=== PATIENT | male | born 1995 | race Hispanic/Latino ===

== ENCOUNTER 2017-10-15 20:13 | Emergency (ER) | payer SELFPAY ==
[~2017-10-15] VITALS: Ht 170.2 cm; Wt 99.8 kg
[2017-10-15] MEDS ORDERED: HYDROCODONE/APAP 10MG-325MG TAB PO ONE (21:45)
--- NOTE | 2017-10-15 23:14 | Diagnostic Imaging Report ---
EXAM: FOOT LEFT COMPLETE, ANKLE 3+ VIEWS LEFT, AP, lateral and oblique INDICATION: Fall, left distal foot pain and bottom of foot COMPARISON: None FINDINGS: BONES: Questionable nondisplaced fracture of the distal fourth metatarsal. JOINTS: No malalignment. SOFT TISSUES: Normal IMPRESSION: Questionable nondisplaced fracture of the distal fourth metatarsal. Please correlate with point tenderness. No evidence of a left ankle fracture. Signed by: Dr. Dayana Simpson M.D. on 10/15/2017 11:10 PM
[2017-10-16 00:14] VITALS: BP 135/75
[2017-10-16] MEDS ORDERED: TYLENOL WITH C1 EACH PO (00:14)
== END 2017-10-16 00:28 | disposition home or self-care (01) ==
LOC: ER 20:13
DX: S92.345A Nondisplaced fracture of fourth metatarsal bone, left foot, initial encounter for closed fracture (principal); Y93.89 Activity, other specified; Y92.008 Other place in unspecified non-institutional (private) residence as the place of occurrence of the external cause
CPT/HCPCS: 99283